=== PATIENT | female | born 1985 | race Caucasian/White ===

== ENCOUNTER → 2016-04-09 | Outpatient (CLI) | payer OTHER ==
--- NOTE | 2016-04-09 09:57 | DX ---
AC joints 2 views Indication: Injured right acromioclavicular joint while playing soccer. Pain and decreased range of m otion. Technique: AP views of bilateral acromioclavicular joints with and without weights. Comparison: None Findings: Bilateral acromioclavicular and coracoclavicular intervals are normal on the with and witho ut weight images. No evidence of acromioclavicular separation. No acute fracture. Bilateral clavicles are intact. No dislocation. Lung apices are clear. Impression: Normal. No fracture or evidence of AC separation.
== END ==
LOC: BMCIMAGING 09:24
PROVIDERS: ATTEND Internal Medicine
DX: M25.511 Pain in right shoulder (principal)

== ENCOUNTER → 2016-07-07 | Outpatient (CLI) | payer OTHER | LOC: BMCIMAGING 14:21 | PROVIDERS: ATTEND Physician Assistant | DX: M79.644 Pain in right finger(s) (principal) ==

== ENCOUNTER → 2016-07-29 | Outpatient (CLI) | payer OTHER | LOC: BMCIMAGING 17:47 | PROVIDERS: ATTEND Internal Medicine | DX: M79.604 Pain in right leg (principal) ==